=== PATIENT | female | born 1965 | race Hispanic/Latino ===

== ENCOUNTER 2018-05-12 10:58 | Emergency (ER) | payer OTHER ==
[2018-05-12] MEDS ORDERED: NA CHLORIDE 0.9% 500 ML ONE (11:36)
[2018-05-12] MEDS ORDERED: MECLIZINE HCL 12.5 MG TAB ONE (11:36)
[2018-05-12] MEDS ORDERED: METOCLOPRAMIDE 10 MG/2mL INJ ONE (11:36)
--- NOTE | 2018-05-12 12:02 | RAD REPORT ---
EXAM DESCRIPTION: CT - Head Brain Wo Cont - 05/12/2018 11:48 am CLINICAL HISTORY: Headache and dizziness COMPARISON: None. TECHNIQUE: Computed axial tomography of the head was obtained. IV contrast was not requested. All CT scans are performed using dose optimization technique as appropriate and may include automated exposure control or mA/KV adjustment according to patient size. FINDINGS: An intracranial bleed is not seen . The ventricles are normal in caliber. No extra-axial fluid collection is noted. Fluid within the sinuses/ mastoids is not seen. IMPRESSION: No acute intracranial abnormality is seen. If patient's symptoms persist MRI of the bra in would be recommended.
--- NOTE | 2018-05-12 13:21 | ER ---
Nurse's Notes [facility] Name: Gretchen Palomares Age: 53 yrs Sex: Female : 1965 Arrival Date: 05/12/2018 Time: 11:01 Bed 13 Private MD: Kendall Macias E Diagnosis: Headache Presentation: 05/12 11:03 Presenting complaint: Patient states: "I've been having terrible headaches for a year, aj1 usually the medicine makes the headache go away from 2 hours, but today it isn't and I feel dizzy and nauseous. It bothers me the most at night." Patient is taking Fiorcet and topiramate for her headaches. Yesterday she also started taking sinus medication (guaifenesin, phenylephrine, and acetaminophen). She was advised to get a MRI 2 months ago, but has not been able to because she couldn't afford it. Transition of care: patient was not received from another setting of care. Onset of symptoms was 2016. Risk Assessment: Do you want to hurt yourself or someone else? Patient reports no desire to harm self or others. Initial Sepsis Screen: Does the patient meet any 2 criteria? No. Patient's initial sepsis screen is negative. Does the patient have a suspected source of infection? No. Patient's initial sepsis screen is negative. Care prior to arrival: None. 11:03 Method Of Arrival: Ambulatory aj1 11:03 Acuity: SUELLEN 3 aj1 Triage Assessment: 11:10 Headache History: The patient has had previous headaches and this one is similar to aj1 previous episodes. General: Appears in no apparent distress. comfortable, Behavior is calm, cooperative, appropriate for age. Pain: Complains of pain in top of head Pain currently is 8 out of 10 on a pain scale. Quality of pain is described as throbbing, Pain began one year ago Also complains of dizziness. Neuro: Level of Consciousness is awake, alert, obeys commands, Oriented to person, place, time, situation, Moves all extremities. Full function Gait is steady, Speech is normal, Facial symmetry appears normal, Reports dizziness, headache. Cardiovascular: Patient's skin is warm and dry. Respiratory: Airway is patent Respiratory effort is even, unlabored, Respiratory pattern is regular, symmetrical. 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 - Social history:: Smoking status: Patient/guardian denies using tobacco. - Ebola Screening: : Patient denies travel to an Ebola-affected area in the 21 days before illness onset. Screenin:41 Abuse screen: Denies threats or abuse. Nutritional screening: No deficits noted. tw2 Tuberculosis screening: No symptoms or risk factors identified. Fall Risk None identified. Assessment: 11:15 General: Appears in no apparent distress. well groomed, Behavior is calm, cooperative, tw2 appropriate for age. Pain: Complains of pain in top of head. Neuro: Level of Consciousness is awake, alert, obeys commands, Oriented to person, place, time, situation. Cardiovascular: Denies chest pain, shortness of breath, Heart tones S1 S2 Patient's skin is warm and dry. Respiratory: Airway is patent Respiratory effort is even, unlabored, Respiratory pattern is regular, symmetrical, Breath sounds are clear bilaterally. GI: No signs and/or symptoms were reported involving the gastrointestinal system. Abdomen is flat, Bowel sounds present X 4 quads. GI: Reports nausea. : No signs and/or symptoms were reported regarding the genitourinary system. EENT: Reports dizziness. Derm: No signs and/or symptoms reported regarding the dermatologic system. Musculoskeletal: Range of motion: intact in all extremities. 12:40 Reassessment: Patient appears in no apparent distress at this time. Patient and/or tw2 family updated on plan of care and expected duration. Pain level reassessed. Patient is alert, oriented x 3, equal unlabored respirations, skin warm/dry/pink. Patient states feeling better. Vital Signs: 11:10 BP 132 / 82; Pulse 85; Resp 18; Temp 98.2(O); Pulse Ox 97% on R/A; Weight 72.57 kg (R); aj1 Height 5 ft. 2 in. (157.48 cm) (R); Pain 8/10; 12:40 BP 107 / 54; Pulse 77; Resp 17; Pulse Ox 98% on R/A; tw2 13:27 BP 103 / 64; Pulse 77; Resp 17; Pulse Ox 100% on R/A; tw2 11:10 Body Mass Index 29.26 (72.57 kg, 157.48 cm) aj1 ED Course: 11:01 Patient arrived in ED. mr 11:01 Kendall Macias MD is Private Physician. mr 11:08 Triage completed. aj1 11:10 Arm band placed on Patient placed in an exam room. aj1 11:15 Tobias Santo PA is PHCP. jmm 11:15 Colin Kaplan MD is Attending Physician. jmm 11:15 Placed in gown. Bed in low position. Pulse ox on. NIBP on. tw2 11:20 Erika Mcgrath, RN is Primary Nurse. tw2 11:35 Inserted saline lock: 22 gauge in right antecubital area, using aseptic technique. tw2 Blood collected. 11:47 CT completed. Patient tolerated procedure well. Patient moved back from CT. nj 11:48 CT Head Brain wo Cont In Process Unspecified. EDMS 13:20 Дмитрий Cross MD is Referral Physician. [facility] 13:31 No provider procedures requiring assistance completed. IV discontinued, intact, tw2 bleeding controlled, No redness/swelling at site. Pressure dressing applied. Administered Medications: 11:35 Drug: Reglan 10 mg Route: IVP; Site: right antecubital; tw2 13:26 Follow up: Response: No adverse reaction tw2 11:35 Drug: Meclizine 25 mg Route: PO; tw2 13:26 Follow up: Response: No adverse reaction tw2 11:37 Drug: NS 0.9% 500 ml Route: IV; Rate: bolus; Site: right antecubital; tw2 13:26 Follow up: Response: No adverse reaction; IV Status: Completed infusion; IV Intake: tw2 500ml Intake: 13:26 IV: 500ml; Total: 500ml. tw2 Outcome: 13:20 Discharge ordered by . jmm 13:31 Discharged to home ambulatory, with family. tw2 13:31 Condition: stable 13:31 Discharge instructions given to patient, family, Instructed on discharge instructions, follow up and referral plans. Demonstrated understanding of instructions, follow-up care. 13:43 Patient left the ED. tw2 Signatures: Dispatcher [employer] EDNadiya Bermudez, RN RN aj1 Tobias Santo PA PA jmm Rivera, Maria mr Erika Mcgrath RN RN tw2 Rich Deshpande
--- NOTE | 2018-05-12 13:21 | EDPHYS ---
Physician Documentation [facility] Name: Gretchen Palomares Age: 53 yrs Sex: Female : 1965 Arrival Date: 05/12/2018 Time: 11:01 Bed 13 Private MD: Kendall Macias E ED Physician Colin Kaplan HPI: 05/12 11:28 This 53 yrs old Female presents to ER via Ambulatory with complaints of jmm Headache, Dizziness, Nausea. 11:28 The patient complains of pain to the top of head. The patient describes the headache as jmm aching. Onset: The symptoms/episode began/occurred gradually, 2 week(s) ago. Associated signs and symptoms: Pertinent positives: dizziness, Pertinent negatives: fever. Patient complains of headache over the past 3 months worsening over the past 2 weeks. Patient states the headache is now constant. patient complains of dizziness on change in position. Denies fever. . 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 - Social history:: Smoking status: Patient/guardian denies using tobacco. - Ebola Screening: : Patient denies travel to an Ebola-affected area in the 21 days before illness onset. ROS: 11:28 Constitutional: Negative for fever, chills, and weight loss, Cardiovascular: Negative jmm for chest pain, palpitations, and edema, Respiratory: Negative for shortness of breath, cough, wheezing, and pleuritic chest pain. 11:28 Neuro: Positive for headache. 11:28 All other systems are negative. Exam: 11:28 Head/Face: atraumatic. jmm 11:28 Constitutional: The patient appears in no acute distress, alert, awake. 11:28 Eyes: Nystagmus: 11:28 Cardiovascular: Rate: normal, Rhythm: regular, Pulses: no pulse deficits are appreciated. 11:28 Respiratory: the patient does not display signs of respiratory distress, Respirations: normal, Breath sounds: are clear throughout. 11:28 Musculoskeletal/extremity: ROM: intact in all extremities. 11:28 Skin: Appearance: Color: normal in color. 11:28 Neuro: Orientation: is normal, Mentation: is normal, Memory: is normal, Cerebellar function: normal finger to nose testing, heel to thompson testing is normal, Gait: is steady. 11:28 Psych: Behavior/mood is pleasant, cooperative. Vital Signs: 11:10 BP 132 / 82; Pulse 85; Resp 18; Temp 98.2(O); Pulse Ox 97% on R/A; Weight 72.57 kg (R); aj1 Height 5 ft. 2 in. (157.48 cm) (R); Pain 8/10; 12:40 BP 107 / 54; Pulse 77; Resp 17; Pulse Ox 98% on R/A; tw2 13:27 BP 103 / 64; Pulse 77; Resp 17; Pulse Ox 100% on R/A; tw2 11:10 Body Mass Index 29.26 (72.57 kg, 157.48 cm) aj1 MDM: 11:16 Patient medically screened. [facility] 11:33 Data reviewed: vital signs, nurses notes. [facility] 12:30 Data reviewed: radiologic studies, CT scan. [facility] 12:30 Counseling: I had a detailed discussion with the patient and/or guardian regarding: the [facility] historical points, exam findings, and any diagnostic results supporting the discharge/admit diagnosis, radiology results, the need for outpatient follow up, to return to the emergency department if symptoms worsen or persist or if there are any questions or concerns that arise at home. Response to treatment: the patient's symptoms have markedly improved after treatment. ED course: Symptoms are relieved in the ED. Patient has a normal cerebellar exam. I do not currently suspect CVA, VBI. Patient's symptoms and PE findings are not consistent with SAH or Meningitis. Patient is advised of the need for follow up with Neurology for further evaluation of her headache and otherwise given strict return precautions Patient and family understood and agree with the plan of care. . 05/12 11:27 Order name: CT Head Brain wo Cont; Complete Time: 12:04 [facility] 05/12 11:27 Order name: Saline Lock; Complete Time: 11:42 [facility] Administered Medications: 11:35 Drug: Reglan 10 mg Route: IVP; Site: right antecubital; tw2 13:26 Follow up: Response: No adverse reaction 2 11:35 Drug: Meclizine 25 mg Route: PO; tw2 13:26 Follow up: Response: No adverse reaction tw2 11:37 Drug: NS 0.9% 500 ml Route: IV; Rate: bolus; Site: right antecubital; tw2 13:26 Follow up: Response: No adverse reaction; IV Status: Completed infusion; IV Intake: tw2 500ml Disposition: 05/12/18 13:20 Discharged to Home. Impression: Headache. - Condition is Stable. - Discharge Instructions: General Headache Without Cause. - Medication Reconciliation Form, Thank You Letter, Antibiotic Education, Prescription Opioid Use form. - Follow up: Дмитрий Cross MD; When: 2 - 3 days; Reason: Recheck today's complaints, Continuance of care, Re-evaluation by your physician. Addendum: 05/13/2018 14:23 Co-signature as Attending Physician, Colin Kaplan MD I agree with the assessment and c valdez plan of care. Signatures: Dispatcher [employer] EDNadiya Bermudez, RN RN aj1 Colin Kaplan MD MD cha Mickail, Joel, PA PA [facility] Erika Mcgrath RN RN tw2 Corrections: (The following items were deleted from the chart) 05/12 13:43 13:20 05/12/2018 13:20 Discharged to Home. Impression: Headache. Condition is Stable. tw2 Forms are Medication Reconciliation Form, Thank You Letter, Antibiotic Education, Prescription Opioid Use. Follow up: Дмитрий Cross; When: 2 - 3 days; Reason: Recheck today's complaints, Continuance of care, Re-evaluation by your physician. [facility]
== END 2018-05-12 13:43 | disposition home or self-care (01) ==
LOC: ER 10:58
DX: R51 Headache (principal); Z88.2 Allergy status to sulfonamides; I10 Essential (primary) hypertension; K21.9 Gastro-esophageal reflux disease without esophagitis
CPT/HCPCS: 70450; 96361; 96374; 99284; J2765

== ENCOUNTER 2019-04-23 11:14 | Emergency (ER) | payer OTHER, SELFPAY ==
--- OUTSIDE RECORDS SUMMARY | 2019-04-23 11:18 | XMS REPORT | Summary of Care ---
:1965 Author Organization [facility] Neurology [place] Address [address] [place] [address]- Encounter [employer] Tucker(FIN) [id number] Date(s): 03/13/19 - 03/13/19 [facility] [address] [place] [address]- [phone] Discharge Disposition: Home or Self Care Attending Physician: Michel Jaramillo MD Vital Signs Most recent to oldest [Reference Range]: 1 Height 154.94 cm (03/13/19 10:16 AM) Blood Pressure [90-140/60-90 mmHg] 127/75 mmHg (03/13/19 10:16 AM) Respiratory Rate [14-20 BRMIN] 16 BRMIN (03/13/19 10:16 AM) Peripheral Pulse Rate [60-100 bpm] 79 bpm (03/13/19 10:16 AM) Weight 71.818 kg (03/13/19 10:16 AM) Body Mass Index 29.92 m2 (03/13/19 10:16 AM) Problem List Condition Effective Dates Status Health Status Informant Headache(Confirmed) Active Hyperlipidemia(Confirmed) Active Hypertension(Confirmed) Active Joint pain(Confirmed) Active Migraine(Confirmed) Active Allergies, Adverse Reactions, Alerts Substance Reaction Severity Status sulfa drugs1 Active 1Hives Medications amitriptyline 10 mg oral tablet 20 mg=2 tab, PO, Bedtime, # 60 tab, 2 Refill(s), Pharmacy: [facility] Start Date: 03/13/19 Stop Date: 06/11/19 Status: OrderedEffexor XR 37.5 mg oral capsule, extended release 37.5 mg=1 cap, PO, Daily, # 30 cap, 2 Refill(s), Pharmacy: [facility] Start Date: 02/21/19 Stop Date: 03/13/19 Status: DiscontinuedSUMAtriptan 50 mg oral tablet 50 mg=1 tab, PO, BID, 0 Refill(s) Start Date: 03/13/19 Status: Ordered Results No data available for this section Immunizations No data available for this section Procedures Procedure Date Related Diagnosis Body Site Status Knee replacement Completed Social History Social History Type Response Employment/School 1 Smoking Status Unknown if ever smoked; Exposure to Tobacco Smoke Unable to obtain; Cigarette Smoking Last 365 Days Unable to obtain; Reg Smoking Cessation Counseling No entered on: 03/13/19 1Can release medical information to Veena Joseph Assessment and Plan No data available for this section
--- OUTSIDE RECORDS SUMMARY | 2019-04-23 11:18 | XMS REPORT | Continuity of Care Document ---
:1965 Author Organization [employer] Care Team Providers Name Role Phone [employer] Unavailable Unavailable Problems Problem Status Onset Classification Date Comments Source Date Reported Headache Active Problem 04/19/2019 [facility] Hyperlipidemia Active Problem 04/19/2019 [facility] Hypertension Active Problem 04/19/2019 [facility] Joint pain Active Problem 04/19/2019 [facility] Migraine Active Problem 04/19/2019 [facility] Medications Medication Details Route Status Patient Ordering Order Source Instructions Provider Date amitriptyline 10 20 mg=2 Active [facility] mg oral tablet tab, PO, 019 Neuro Bedtime, # 180 tab, 3 Refill(s), Pharmacy: [id number] amitriptyline 10 20 mg=2 Active [facility] mg oral tablet tab, PO, 019 Neuro Bedtime, # 60 tab, 2 Refill(s), Pharmacy: [facility] [id number] [facility] SUMAtriptan 50 50 mg=1 Active [facility] mg oral tablet tab, PO, 019 Neuro BID, 0 Refill(s) 24 HR 37.5 mg=1 [facility]5 [facility], PO, Active 019 Neuro MG Extended Daily, # Release Capsule 30 cap, 2 [Effexor] Refill(s), Pharmacy: [facility] [id number] Allergies, Adverse Reactions, Alerts Substance Category Reaction Severity Reaction Status Date Comments Source type Reported sulfa Assertion Drug Active Hives [facility] drugs<sup>1 allergy Neuro </sup> Immunizations No Data Provided for This Section Results No Data Provided for This Section Pathology Reports No Data Provided for This Section Diagnostic Reports No Data Provided for This Section Consultation Notes No Data Provided for This Section Discharge Summaries No Data Provided for This Section History and Physicals No Data Provided for This Section Vital Signs Vital Sign Value Date Comments Source Weight 71.818 03/13/2019 [facility] BMI Calculated 29.92 03/13/2019 [facility] Height 154.94 cm 03/13/2019 [facility] Heart Rate 79 03/13/2019 [facility] Respitory Rate 16 03/13/2019 [facility] Systolic (mm Hg) 127 03/13/2019 [facility] Diastolic (mm Hg) 75 03/13/2019 [facility] Encounters Location Location Encounter Encounter Reason Attending ADM DC Status Source Details Type Number For Provider Date Date Visit Outpatient [id number] PRADEEP 12/11 [facility] Outpatient [id number] Pradeep 01/09 [facility] Outpatient [id number] Pradeep 03/13 [facility] Sai MNA Outpatient [id number] Pradeep 03/13 03/14 [facility] Neurology [facility] Outpatient [id number] Pradeep 04/17 [facility]NA Ambulatory [id number] Pradeep 04/17 04/17 [facility] Neurology Pre[facility]Reg [facility] Procedures Procedure Code Date Perfomer Comments Source Knee replacement [id number] [facility] Assessment and Plan No Data Provided for This Section Plan of Care No Data Provided for This Section Social History Social History Date Source Social History TypeResponse 12/11/2018 [facility] Employment/School 1 Smoking Status Unknown if ever smoked; Exposure to Tobacco Smoke Unable to obtain; Cigarette Smoking Last 365 Days Unable to obtain; Reg Smoking Cessation Counseling No entered on: 03/13/19 1Can release medical information to Veena Joseph Family History No Data Provided for This Section Advance Directives No Data Provided for This Section Functional Status No Data Provided for This Section
--- OUTSIDE RECORDS SUMMARY | 2019-04-23 11:18 | XMS REPORT | Summary of Care ---
:1965 Author Organization [facility] Neurology [place] Address [address] [place] [address]- phone Encounter [facility] Nenitar_jose(FIN) [id number] Date(s): 04/17/19 - 04/17/19 [facility] [address] [place] [address]- [phone] Attending Physician: Michel Jaramillo MD Vital Signs No data available for this section Problem List Condition Effective Dates Status Health Status Informant Headache(Confirmed) Active Hyperlipidemia(Confirmed) Active Hypertension(Confirmed) Active Joint pain(Confirmed) Active Migraine(Confirmed) Active Allergies, Adverse Reactions, Alerts Substance Reaction Severity Status sulfa drugs1 Active 1Hives Medications amitriptyline 10 mg oral tablet 20 mg=2 tab, PO, Bedtime, # 180 tab, 3 Refill(s), Pharmacy: [facility] [id number] [facility] [place] Start Date: 04/08/19 Status: Ordered Results No data available for [...] on: 03/13/19 1Can release medical information to Daughter- Helen Joseph Assessment and Plan No data available for this section
[2019-04-23] MEDS ORDERED: IBUPROFEN 400 MG TAB ONE (12:31)
--- NOTE | 2019-04-23 12:54 | RAD REPORT ---
EXAM DESCRIPTION: RAD - Hand Right 3 View - 04/23/2019 12:41 pm CLINICAL HISTORY: PAIN Fall, pain COMPARISON: Hand Right 3 View dated 09/03/2018 FINDINGS: No acute fracture seen.
--- NOTE | 2019-04-23 12:56 | RAD REPORT ---
EXAM DESCRIPTION: RAD - Wrist Right 3 View - 04/23/2019 12:41 pm CLINICAL HISTORY: PAIN Pain COMPARISON: <Comparisons> FINDINGS: No fracture or dislocation seen. No foreign body or other soft tissue abnormality. IMPRESSION: Negative examination.
--- NOTE | 2019-04-23 13:00 | ER ---
Nurse's Notes [facility] Name: Gretchen Palomares Age: 54 yrs Sex: Female : 1965 Arrival Date: 04/23/2019 Time: 11:14 Bed 9 Private MD: Diagnosis: Contusion of wrist and hand Presentation: 04/23 11:16 Presenting complaint: Patient states: i tripped and fell from work last night and hurt hj the R side of my body jovany my R arm; denies hitting head and LOC:. Transition of care: patient was not received from another setting of care. Onset of symptoms was April 23, 2019. Risk Assessment: Do you want to hurt yourself or someone else? Patient reports no desire to harm self or others. Initial Sepsis Screen: Does the patient meet any 2 criteria? No. Patient's initial sepsis screen is negative. Does the patient have a suspected source of infection? No. Patient's initial sepsis screen is negative. Care prior to arrival: None. 11:16 Method Of Arrival: Ambulatory 11:16 Acuity: SUELLEN 4 hj Triage Assessment: 11:51 General: Appears in no apparent distress. uncomfortable, Behavior is calm, cooperative, hj appropriate for age. Pain: Complains of pain in right arm. Musculoskeletal: Reports pain in right arm. 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 - Social history:: Smoking status: Patient/guardian denies using tobacco, Patient/guardian denies using alcohol. - Ebola Screening: : Patient negative for fever greater than or equal to 101.5 degrees Fahrenheit, and additional compatible Ebola Virus Disease symptoms Patient denies exposure to infectious person Patient denies travel to an Ebola-affected area in the 21 days before illness onset. Screenin:47 Abuse screen: Denies threats or abuse. Denies injuries from another. Nutritional hj screening: No deficits noted. Tuberculosis screening: No symptoms or risk factors identified. Fall Risk None identified. Vital Signs: 11:17 BP 134 / 90; Pulse 90; Resp 18; Temp 97.8(TE); Pulse Ox 98% on R/A; Weight 70.31 kg; hj Height 5 ft. 2 in. (157.48 cm); Pain 8/10; 13:26 BP 128 / 85; Pulse 85; Resp 18; Pulse Ox 100% on R/A; hj 11:17 Body Mass Index 28.35 (70.31 kg, 157.48 cm) hj ED Course: 11:14 Patient arrived in ED. as 11:17 Triage completed. hj 11:17 Arm band placed on left wrist. hj 11:47 Matt Up, SUSAN is Primary Nurse. hj 11:52 Patient has correct armband on for positive identification. Bed in low position. Call hj light in reach. Side rails up X 1. 11:56 Bear Moody PA is PHCP. jr8 11:56 Abraham Corrigan MD is Attending Physician. jr8 12:42 XRAY Hand RIGHT 3 View In Process Unspecified. EDMS 12:42 Wrist Right 3 View XRAY In Process Unspecified. EDMS 12:59 Vadim Aragon MD is Referral Physician. jr8 13:25 No provider procedures requiring assistance completed. Patient did not have IV access hj during this emergency room visit. Administered Medications: 12:08 Drug: Ibuprofen 800 mg Route: PO; hj 12:14 Follow up: Response: No adverse reaction hj Outcome: 13:00 Discharge ordered by . jr8 13:25 Discharged to home ambulatory. hj 13:25 Condition: stable 13:25 Discharge instructions given to patient, Instructed on discharge instructions, follow up and referral plans. medication usage, Demonstrated understanding of instructions, follow-up care, medications, Prescriptions given X 1. 13:27 Patient left the ED. hj Signatures: Dispatcher [employer] EDMS Yvette Ramos Josh, PA PA jr8 Matt Up RN RN hj
--- NOTE | 2019-04-23 13:01 | EDPHYS ---
Physician Documentation [facility] Name: Gretchen Palomares Age: 54 yrs Sex: Female : 1965 Arrival Date: 04/23/2019 Time: 11:14 Bed 9 Private MD: ED Physician Abraham Corrigan HPI: 04/23 12:16 This 54 yrs old Female presents to ER via Ambulatory with complaints of Hand jr8 Injury. 12:16 The patient or guardian reports injury, swelling, tenderness. The complaints affect the jr8 right hand and wrist. Context: The problem was sustained at work, resulted from a fall, working. Onset: The symptoms/episode began/occurred suddenly, yesterday, at 18:00. Modifying factors: The symptoms are alleviated by nothing, the symptoms are aggravated by movement. Associated signs and symptoms: Pertinent negatives: decreased sensation distally, numbness distally, tingling distally. Severity of symptoms: At their worst the symptoms were moderate, in the emergency department the symptoms are unchanged. The patient has not experienced similar symptoms in the past. The patient has not recently seen a physician. Reports trip/fall onto right side while putting clothes away at work yesterday, right hand and wrist pain and swelling. [employer]: 13:26 LMP N/A - control method hj Historical: - Allergies: 11:17 Sulfa (Sulfonamide Antibiotics); hj - Home Meds: 13:27 duloxetine Oral [Active]; Fioricet Oral [Active]; lisinopril Oral [Active]; hj pantoprazole Oral [Active]; topiramate Oral [Active]; Tramadol Oral [Active]; - PMHx: 11:17 Arthritis; GERD; Hypertension; hj - PSHx: 11:17 Knee surgery; ; hj - Immunization history:: Adult Immunizations up to date. - Social history:: Smoking status: Patient/guardian denies using tobacco, Patient/guardian denies using alcohol. - Ebola Screening: : Patient negative for fever greater than or equal to 101.5 degrees Fahrenheit, and additional compatible Ebola Virus Disease symptoms Patient denies exposure to infectious person Patient denies travel to an Ebola-affected area in the 21 days before illness onset. ROS: 12:16 Constitutional: Negative for fever, chills, and weight loss, Eyes: Negative for injury, jr8 pain, redness, and discharge, Neck: Negative for injury, pain, and swelling, Cardiovascular: Negative for chest pain, palpitations, and edema, Respiratory: Negative for shortness of breath, cough, wheezing, and pleuritic chest pain, Abdomen/GI: Negative for abdominal pain, nausea, vomiting, diarrhea, and constipation, Back: Negative for injury and pain, Neuro: Negative for headache, weakness, numbness, tingling, and seizure. 12:16 MS/extremity: Positive for pain, swelling, tenderness, Negative for paresthesias, puncture, tingling, warmth. 12:16 Skin: Positive for ecchymosis, Negative for hematoma, laceration(s). Exam: 12:16 Constitutional: This is a well developed, well nourished patient who is awake, alert, jr8 and in no acute distress. Head/Face: Normocephalic, atraumatic. Eyes: Pupils equal round and reactive to light, extra-ocular motions intact. Lids and lashes normal. Conjunctiva and sclera are non-icteric and not injected. Cornea within normal limits. Periorbital areas with no swelling, redness, or edema. Neck: Trachea midline, no thyromegaly or masses palpated, and no cervical lymphadenopathy. Supple, full range of motion without nuchal rigidity, or vertebral point tenderness. No Meningismus. Cardiovascular: Regular rate and rhythm with a normal S1 and S2. No gallops, murmurs, or rubs. Normal PMI, no JVD. No pulse deficits. Respiratory: Lungs have equal breath sounds bilaterally, clear to auscultation and percussion. No rales, rhonchi or wheezes noted. No increased work of breathing, no retractions or nasal flaring. Abdomen/GI: Soft, non-tender, with normal bowel sounds. No distension or tympany. No guarding or rebound. No evidence of tenderness throughout. Back: No spinal tenderness. No costovertebral tenderness. Full range of motion. Skin: Warm, dry with normal turgor. Normal color with no rashes, no lesions, and no evidence of cellulitis. Neuro: Awake and alert, GCS 15, oriented to person, place, time, and situation. Cranial nerves II-XII grossly intact. Motor strength 5/5 in all extremities. Sensory grossly intact. Cerebellar exam normal. Normal gait. 12:16 Musculoskeletal/extremity: Extremities: grossly normal except: noted in the right wrist: decreased ROM, pain, tenderness, ROM: limited active range of motion due to pain, in the right wrist, Circulation is intact in all extremities. Pulses: noted to be 2+ in the right radial artery and left radial artery, Sensation intact. 12:16 Skin: Appearance: normal except for affected area, injury, contusion(s), that are superficial, of the right hip, with no other evidence of injury. Vital Signs: 11:17 BP 134 / 90; Pulse 90; Resp 18; Temp 97.8(TE); Pulse Ox 98% on R/A; Weight 70.31 kg; hj Height 5 ft. 2 in. (157.48 cm); Pain 8/10; 13:26 BP 128 / 85; Pulse 85; Resp 18; Pulse Ox 100% on R/A; hj 11:17 Body Mass Index 28.35 (70.31 kg, 157.48 cm) Procedures: 13:03 Splinting: Splint applied to right wrist using wrist splint, applied by nurse. Examined jr8 by me, post splint application: neurovascular intact, 2+ distal pulses palpable, brisk capillary refill noted, Patient tolerated well. MDM: 11:57 Patient medically screened. jr8 12:59 Data reviewed: vital signs, nurses notes, radiologic studies, plain films, and as a jr8 result, I will discharge patient. Data interpreted: Pulse oximetry: on room air is 98 %. Interpretation: normal. Counseling: I had a detailed discussion with the patient and/or guardian regarding: the historical points, exam findings, and any diagnostic results supporting the discharge/admit diagnosis, radiology results, the need for outpatient follow up, a family practitioner, to return to the emergency department if symptoms worsen or persist or if there are any questions or concerns that arise at home. 04/23 12:08 Order name: XRAY Hand RIGHT 3 View; Complete Time: 12:59 jr8 04/23 12:08 Order name: Wrist Right 3 View XRAY; Complete Time: 12:59 jr8 04/23 13:04 Order name: Wrist Splint; Complete Time: 13:12 jr8 Administered Medications: 12:08 Drug: Ibuprofen 800 mg Route: PO; 12:14 Follow up: Response: No adverse reaction Disposition: 15:58 Co-signature as Attending Physician, Abraham Corrigan MD. rn Disposition: 04/23/19 13:00 Discharged to Home. Impression: Contusion of wrist and hand. - Condition is Stable. - Discharge Instructions: Hand Contusion. - Prescriptions for Ibuprofen 800 mg Oral Tablet - take 1 tablet by ORAL route every 12 hours As needed take with food; 20 tablet. - Medication Reconciliation Form, Thank You Letter, Antibiotic Education, Prescription Opioid Use, Work release form form. - Follow up: Vadim Aragon MD; When: 1 week; Reason: If symptoms return, Recheck today's complaints, Continuance of care, Re-evaluation by your physician. - Problem is new. - Symptoms have improved. Signatures: Dispatcher [employer] EDMS Abraham Corrigan MD MD rn Roszak, Josh, PA PA jr8 Matt Up RN RN Corrections: (The following items were deleted from the chart) 12:24 12:16 Reports fall onto right side while at work yesterday, right hand and wrist pain jr8 and swelling. jr8 13:27 13:00 04/23/2019 13:00 Discharged to Home. Impression: Contusion of wrist and hand. hj Condition is Stable. Forms are Medication Reconciliation Form, Thank You Letter, Antibiotic Education, Prescription Opioid Use. Follow up: Vadim Aragon; When: 1 week; Reason: If symptoms return, Recheck today's complaints, Continuance of care, Re-evaluation by your physician. Problem is new. Symptoms have improved. jr8
== END 2019-04-23 13:27 | disposition home or self-care (01) ==
LOC: ER 11:14
PROC: 2W3CX1Z Immobilization of Right Lower Arm using Splint (ICD-10-PCS; principal; 2019-04-23)
DX: S60.211A Contusion of right wrist, initial encounter (principal); S60.221A Contusion of right hand, initial encounter; W01.0XXA Fall on same level from slipping, tripping and stumbling without subsequent striking against object, initial encounter; Y93.89 Activity, other specified; Z88.2 Allergy status to sulfonamides; I10 Essential (primary) hypertension; K21.9 Gastro-esophageal reflux disease without esophagitis